=== PATIENT | female | born 1950 | race Caucasian/White ===

== ENCOUNTER 2017-06-28 11:51 | Emergency (ER) | payer MEDICARE, MEDICAID ==
[~2017-06-28] VITALS: Ht 177.8 cm; Wt 79.4 kg
[~2017-06-28 11:51] MED LIST: ANTIVERT12.5 MG ORAL
[2017-06-28] MEDS ORDERED: Acetaminophen 500mg (ES) tab ORAL ONE (12:15)
[2017-06-28] MEDS ORDERED: BACTRIM DS TAB1 EAC1 ORAL (12:19)
[2017-06-28] MEDS ORDERED: MUPIROCIN22 GM TOPIC (12:19)
[2017-06-28] MEDS ORDERED: TYLENOL EXTRA500 MG ORAL (12:19)
[2017-06-28 12:20] VITALS: BP 130/68
--- NOTE | 2017-06-28 12:23 | Emergency Room Report ---
History of Present Illness General Chief Complaint: Pain Present Illness HPI 67 yo female patient presents to the ER complaining of right big toe pain x3 weeks. Patient reports being seen by costing manager for the past few weeks for toe pain. Reports able to ambulate without difficulty. Reports had portion of toenail of big toe on right foot removed 1.5 weeks ago. Reports nail bed healing well. Denies acute injury. Reports "I think my toe is becoming infected" and states "I need abx." reports was not given any antibiotics by costing manager. Denies fever, chest pain, SOB, intractable vomiting. Allergies: Coded Allergies: NO KNOWN ALLERGIES (Unverified Allergy, Unknown, 01/14/15) Patient History Past Medical History: see triage record Reviewed Nursing Documentation: PMH: Agreed; PSxH: Agreed Nursing Documentation-PMH Hx Neurological Problems: Yes - Vertigo Review of Systems All Other Systems: negative except mentioned in HPI Physical Exam Vital Signs Date Time Temp Pulse Resp B/P (MAP) Pulse Ox O2 Delivery O2 Flow Rate FiO2 06/28/17 11:58 98.0 86 20 130/68 98 Room Air 98.1 Sp02 EP Interpretation: reviewed, normal General Appearance: well appearing, no apparent distress, alert, GCS 15, non- toxic Head: normocephalic, atraumatic Neck: full range of motion Respiratory: lungs clear, normal breath sounds, no rhonchi, no respiratory distress, no accessory muscle use, no wheezing, speaking full sentences Cardiovascular #1: regular rate, rhythm, no edema Cardiovascular #2: 2+ dorsalis pedis (R), 2+ dorsalis pedis (L) Musculoskeletal: back normal, digits/nails normal, gait/station normal, normal range of motion, non-tender Neurologic: alert, oriented x3, responsive, motor strength/tone normal, sensory intact Skin: other - left foot, big toe: mild erythema and edema of distal toe, nail bed intact, lateral border of nail recently removed, mild TTP, no induration or fluctance, no paronychia Medical Decision Making PA Attestation Dr. Abraham is my supervising Physician whom patient management has been discussed with. Diagnostic Impression: Primary Impression: Toe inflammation ER Course Pt. presents to the ED c/o right big toe pain. Ddx considered but are not limited to rash, cellulitis, abscess, felon, paronychia, ingrown nail. Vital signs: are WNL, pt. is afebrile Ordered Tylenol. ED COURSE: patient provided with pain medication. PE: mild erythema and inflammation at the distal end of toe, no nail involvement , no drainage at this time, low suspicion for paronychia and felon. Nail appears to be healing well from previous removal of ingrown nail procedure performed by costing manager, per patient. Patient started taking Tylenol for pain. Patient instructed on warm soaks and to apply topical antibiotic 2 foot following warm soaks, keep foot warm and dry. Possible early signs of infection vs healing toe, does not require incision and drainage at this time. Warm patient that we'll provide her with antibiotics, instructed her to contact a costing manager to discuss need for beginning to take antibiotics. Patient may begin taking antibiotics if symptoms of toe begin to worsen including worsening swelling, erythema, infection, drainage or as instructed by costing manager. Informed patient that due to chronicity of symptoms and patient already being followed by costing manager for symptoms, needs to follow up with costing manager, needs to follow treatment care plan established by costing manager. Patient instructed to keep wound clean and dry and to follow-up with primary care provider. she requesting referral , informed her needs to come primary care provider, may also follow-up with Dentist as needed. DISCHARGE -Rx provided for Bactrim -Rx provided for Tylenol -Rx provided for Mupirocin At this time pt. is stable for d/c to home. Patient resting comfortably, in no acute distress, nontoxic appearing, laughing and smiling. Will provide printed patient care instructions and any necessary prescriptions. Care plan and follow up instructions have been discussed with the patient prior to discharge. Patient instructed to follow-up with primary care provider. Patient questions asked and answered. Patient reports understanding and agreement to treatment plan. ER precautions given. Patient instructed to return to ER immediately for any new or worsening of symptoms including but not limited to fever, worsening of pain symptoms, worsening of erythema, red streaking. - Please note that this Emergency Department Report was dictated using [employer] technology software, occasionally this can lead to erroneous entry secondary to interpretation by the dictation equipment. Last Vital Signs Date Time Temp Pulse Resp B/P (MAP) Pulse Ox O2 Delivery O2 Flow Rate FiO2 06/28/17 11:58 98.0 86 20 130/68 98 Room Air 98.1 Disposition: HOME, SELF-CARE Condition: Stable Scripts Trimethoprim/Sulfamethoxazole 160/800* (BACTRIM DS TABLET*) 1 Each Tablet 1 TAB ORAL TWICE A DAY, #14 TAB Prov: Andres Newman 06/28/17 Acetaminophen* (TYLENOL EXTRA STRENGTH*) 500 Mg Tablet 500 MG ORAL Q8H PRN for Prn Headache/Temp > 101, #30 TAB 0 Refills Prov: Andres Newman 06/28/17 Mupirocin* (MUPIROCIN*) 22 Gm Oint...g. 1 APPLIC TOPIC THREE TIMES A DAY, #22 GM Prov: Andres Newman 06/28/17 Patient Instructions: Fingertip Infection, Ingrown Toenail, Paronychia, Easy-to -Read Additional Instructions: Followup with PCP in 3-5 days. Discuss referral to ENT. Followup with costing manager at scheduled appointment. Contact costing manager to discuss beginning abx. Provided with medications, take as instructed. If symptoms worsen, may begin taking abx. Take Tylenol for pain symptoms. Perform warm soaks and keep foot clean and dry. Apply topical abx after warm soaks. Patient provided with care instructions. ER precautions given, return to ER for new or worsening of symptoms, including but not limited to fever, chest pain, SOB, intractable vomiting, red streaking, worsening of swelling and infection of toe as described. Andres Newman June 28, 2017 12:23
[2017-06-28 12:29] VITALS: BP 130/68
== END 2017-06-28 12:29 | disposition home or self-care (01) ==
LOC: EMR 12:21
DX: M79.674 Pain in right toe(s) (principal); Z98.890 Other specified postprocedural states
CPT/HCPCS: 99284